=== PATIENT | female | born 1945 ===

== ENCOUNTER 2018-05-25 05:08 | Day surgery (SDC) | payer OTHER ==
[~2018-05-25 05:08] MED LIST: ACTONEL5 MG PO; ATORVASTATIN CA10 MG PO; CALTRATE 600+D1 EAC1 PO; ETODOLAC600 MG PO; FOLIC ACID1 MG PO; MILLIPRED5 MG PO; OSTERA TABLET1 EACH PO; [UNRECOGNIZED DRUG - OTHER] PO
[2018-05-25] MEDS ORDERED: MACROBID 100 M100 MG PO (12:39)
[2018-05-25] MEDS ORDERED: ULTRACET PO (12:40)
== END 2018-05-25 17:30 | disposition home or self-care (01) ==
LOC: CIR.AMB 05:08
DX: N81.3 Complete uterovaginal prolapse (principal)